=== PATIENT | male | born 1980 | race Caucasian/White ===

== ENCOUNTER 2016-05-12 00:53 | Emergency (ER) | payer MEDICARE, OTHER ==
[~2016-05-12 00:53] MED LIST: AUGMENTIN PO; DICLOFENAC PO; EC-NAPROSYN500 MG PO; KEFLEX PO; KEFLEX500 MG PO; PREDNISONE PO; ULTRAM PO
== END 2016-05-12 01:27 | disposition home or self-care (01) ==
LOC: CED 00:53
DX: R21 Rash and other nonspecific skin eruption (principal); F17.210 Nicotine dependence, cigarettes, uncomplicated; Z98.890 Other specified postprocedural states
CPT/HCPCS: 36415; 96372; 99283; J1885

== ENCOUNTER 2016-06-16 19:33 | Emergency (ER) | payer MEDICARE, OTHER | END 2016-06-16 20:08 | disposition home or self-care (01) | LOC: SED 19:33 | DX: R21 Rash and other nonspecific skin eruption (principal); H57.8 Other specified disorders of eye and adnexa; F17.210 Nicotine dependence, cigarettes, uncomplicated | CPT/HCPCS: 99283 ==

== ENCOUNTER 2016-07-17 01:40 | Emergency (ER) | payer MEDICARE, OTHER ==
[2016-07-17] MEDS ORDERED: NO MEDICATIONS (01:46)
== END 2016-07-17 02:29 | disposition home or self-care (01) ==
LOC: SED 01:40
DX: H10.33 Unspecified acute conjunctivitis, bilateral (principal); F17.210 Nicotine dependence, cigarettes, uncomplicated
CPT/HCPCS: 99282

== ENCOUNTER 2016-07-20 03:38 | Emergency (ER) | payer MEDICARE, OTHER ==
[~2016-07-20 03:38] MED LIST changes: +NO MEDICATIONS
== END 2016-07-20 05:36 | disposition home or self-care (01) ==
LOC: SED 03:38
DX: S05.02XA Injury of conjunctiva and corneal abrasion without foreign body, left eye, initial encounter (principal); S05.01XA Injury of conjunctiva and corneal abrasion without foreign body, right eye, initial encounter; Z23 Encounter for immunization; W22.8XXA Striking against or struck by other objects, initial encounter; Y92.9 Unspecified place or not applicable
CPT/HCPCS: 90471; 90715; 99283; J2270; J2405